=== PATIENT | female | born 1995 | race Caucasian/White ===

== ENCOUNTER 2016-08-24 12:42 | Emergency (ER) | payer BC ==
[2016-08-24] MEDS ORDERED: KETOROLAC 30 MG/1 ML SDV IVP ONE (13:24)
[2016-08-24] MEDS ORDERED: DEXAMETHASONE 10 MG/ML VIAL IVP ONE (13:24)
[2016-08-24] MEDS ORDERED: NS 1,000 ML IV ONE ×2 (13:24)
--- NOTE | 2016-08-24 13:27 | EDPHY ---
H & P Time Seen by Provider: 08/24/16 13:17 HPI/ROS: CHIEF COMPLAINT: Sore throat HISTORY OF PRESENT ILLNESS: 21-year-old woman started getting sick this past Sunday with fever nausea and full body myalgias. She felt better after 2 days but then developed a sore throat. Yesterday she went to work with a significant sore throat and was started on penicillin after rapid strep test was negative and the culture is pending. Today she shows up with worsening sore throat saying it is moderate to severe and it is difficult for her to swallow and is worse with trying to eat or drink. Not associated with fever or chills or shortness of breath. Not associated with ear symptoms. REVIEW OF SYSTEMS: Eye: no change in vision ENT: HPI, no ear symptoms Cardiac: no chest pain or syncope Pulmonary: no cough or SOB Abdomen: no vomiting, diarrhea, abdominal pain Musculoskeletal: No difficulty with range of motion of the neck Skin: no rash Neuro: no headache Constitutional: HPI : no urinary symptoms A comprehensive 10 point review of systems is otherwise negative aside from elements mentioned in the history of present illness. PAST MEDICAL HISTORY: Attention deficit hyperactivity disorder, last period 2 weeks ago, denies . Social history: Nonsmoker, no drugs General Appearance: Alert and conversant, cooperative. Eyes: No scleral icterus. ENT, Mouth: Pharynx shows erythema but no exudate or tonsillar swelling. No trismus. No stridor. No gum swelling. Normal tympanic membranes. Respiratory: Normal respiratory effort, breath sounds equal, lungs are clear to auscultation. Cardiovascular: Regular rate and rhythm. Gastrointestinal: Abdomen is soft and non tender. Neurological: Alert and oriented x3. Normally conversant. Face symmetric, normal movement and sensation in all extremities. Skin: Warm and dry, no rashes. Musculoskeletal: Full range of motion of the neck, no meningeal signs. No palpable cervical lymphadenopathy. Psychiatric: Not agitated. Emergency Department course/MDM: Likely viral pharyngitis especially with negative strep test yesterday. Plan for normal saline 2 L IV with 10 mg IV dexamethasone and 30 mg IV Toradol. Monospot test. 1425: [place] test is negative, patient re-examined at this time. Patient feels better and says that her pain is now down from a 10/10 to almost nonexistent. Smoking Status: Never smoked Constitutional: Initial Vital Signs Temperature (C) 36.8 C 08/24/16 12:55 Heart Rate 100 08/24/16 12:55 Respiratory Rate 16 08/24/16 12:55 Blood Pressure 102/55 L 08/24/16 12:55 O2 Sat (%) 97 08/24/16 12:55 O2 Delivery Mode Room Air Allergies/Adverse Reactions: No Known Allergies Allergy (Unverified 03/02/16 09:11) Home Medications: Medication Instructions Recorded Penicillin G Benzathine 08/24/16 Medical Decision Making Differential Diagnosis: Differential for sore throat considered including but not limited to strep throat, mononucleosis, epiglottitis, retropharyngeal abscess, tonsillitis. - Data Points Laboratory Results: 08/24/16 13:31 Monoscreen NEGATIVE (NEGATIVE) Medications Given: Discontinued Medications Dexamethasone (Decadron Injection) 10 mg IVP EDNOW ONE Stop: 08/24/16 13:25 Last Admin: 08/24/16 13:30 Dose: 10 mg Sodium Chloride (Ns) 1,000 mls @ 0 mls/hr IV ONCE ONE PRN Reason: Wide Open Stop: 08/24/16 13:25 Last Admin: 08/24/16 13:48 Dose: 1,000 mls Sodium Chloride (Ns) 1,000 mls @ 0 mls/hr IV ONCE ONE PRN Reason: Wide Open Stop: 08/24/16 13:25 Last Admin: 08/24/16 13:30 Dose: 1,000 mls Ketorolac Tromethamine (Toradol) 30 mg IVP EDNOW ONE Stop: 08/24/16 13:25 Last Admin: 08/24/16 13:30 Dose: 30 mg Departure - Departure Disposition: Home, Routine, Self-Care Clinical Impression: Pharyngitis Qualifiers: Pharyngitis/tonsillitis etiology: unspecified etiology Qualified Code(s): J02.9 - Acute pharyngitis, unspecified Condition: Good Instructions: Pharyngitis (ED) Additional Instructions: keep taking medications as prescribed. oral ibuprofen 600mg by mouth every 6-8 hours for the next 3 days. negative mono test in the ED. Referrals: Desmond Hobbs MD [Medical Doctor] - 1 day, if not improved (if not better evaluation at ENT office tomorrow; tell them you are a referral from the ED)
[2016-08-24 14:46] VITALS: BP 98/60; PULSE 83; RESP 14; TEMP 98.6; O2SAT 100
== END 2016-08-24 14:46 | disposition home or self-care (01) ==
DX: J02.9 Acute pharyngitis, unspecified (principal)
CPT/HCPCS: 96374; J1885

== ENCOUNTER 2018-06-11 18:00 | Emergency (ER) | payer BC ==
--- NOTE | 2018-06-11 18:35 | EDPHY ---
H & P Stated Complaint: finals/hasn't slept for 2 days/hallucinations/visual issues - Personal History LMP (Females 10-55): 15-21 Days Ago Current Tetanus Diphtheria and Acellular Pertussis (TDAP): Yes - Medical/Surgical History Hx Asthma: No Hx Chronic Respiratory Disease: No Hx Diabetes: No Hx Cardiac Disease: No Hx Renal Disease: No Hx Cirrhosis: No Hx Alcoholism: No Hx HIV/AIDS: No Hx Splenectomy or Spleen Trauma: No Other PMH: ADHD - Social History Smoking Status: Never smoked Time Seen by Provider: 06/11/18 18:20 HPI/ROS: CHIEF COMPLAINT: Multiple complaints see HPI HISTORY OF PRESENT ILLNESS: 22-year-old female history of anxiety, has previously been to emergency department for acute anxiety attack, presents to the ER via [employer] stating that she last slept 2 days ago, has been ingesting large quantities of stimulants in order to stay awake and study, today during her final examination she felt as if she was hallucinating, had difficulty concentrating, feeling tearful. This is currently final examination week. PRIMARY CARE PROVIDER: REVIEW OF SYSTEMS: 10 systems reviewed and negative with the exception of the elements mentioned in the history of present illness PAST MEDICAL & SURGICAL HISTORY: Prior history of acute anxiety attack SOCIAL HISTORY: Denies illicit drug use. [facility] Student PHYSICAL EXAM (Prior to examination, patient consented to physical exam, hands were washed and my usual and customary physical exam procedures followed) 1) GENERAL: Well-developed, well-nourished, alert and oriented. Appears anxious and tearful. 2) HEAD: Normocephalic, atraumatic 3) HEENT: Pupils equal, round, reactive to light bilaterally. Sclera anicteric. Nasopharynx, oropharynx, clear, no lesions. Moist Mucous membranes. Ears bilaterally with normal tympanic membranes. 4) NECK: Full range of motion, no meningeal signs. 5) LUNGS: Clear auscultation bilaterally, no wheezes, no rhonchi, no retractions. 6) HEART: Regular rate and rhythm, no murmur, no heave, no gallop. 7) ABDOMEN: No guarding, no rebound, no focal tenderness, negative McBurney's, negative Felton's, negative Rovsing's, negative peritoneal sign, 8) MUSCULOSKELETAL: Moving all extremities, no focal areas of tenderness, no obvious trauma. No peripheral edema or discoloration. 9) BACK: No CVA tenderness, no midline vertebral tenderness, no fluctuance, no step-off, no obvious trauma, no visual or palpable abnormality. 10) SKIN: No rash, no petechiae. 11) Psychiatric: Patient is oriented X 3, there is no agitation. She is tearful 12) NEURO: Awake, alert, and oriented to person, place and time. Answers questions appropriately. There were no obvious focal neurologic abnormalities. No cerebellar dysfunction. Cranial nerves 2 through to 12 intact. Normal steady gait. Upper and lower extremities bilaterally with strength 5 / 5, reflexes 2+. DIFFERENTIAL DIAGNOSIS: In no particular order, including but not limited to subarachnoid hemorrhage, migraine headache, sleep deprivation, tension headache and infectious causes such as meningitis, pharyngitis and sinusitis. The patient understands that this diagnosis is provisional and can never be 100% accurate. Usual and customary warnings were given concerning the clinical impression and all the patient's questions were answered. The patient was instructed to return to the emergency department should her symptoms worsen or return, or develop any new symptoms, otherwise to followup as directed in discharge instructions. This is a partial list of diagnoses considered. These considerations are based on history, physical exam, past history and reassessment. (Carlos Mauricio) Constitutional: Initial Vital Signs Temperature (C) 36.4 C 06/11/18 18:06 Heart Rate 100 06/11/18 18:06 Respiratory Rate 20 06/11/18 18:06 Blood Pressure 128/87 H 06/11/18 18:06 O2 Sat (%) 100 06/11/18 18:06 O2 Delivery Mode Room Air Allergies/Adverse Reactions: No Known Allergies Allergy (Verified 06/11/18 18:06) Home Medications: Medication Instructions Recorded Adderall 10 MG (*) 06/11/18 Medical Decision Making ED Course/Re-evaluation: 6:35 p.m.: Patient notes no sleep in 48 hr and ingestion a large quantities of stimulants noticed a weight study for final examinations. I think the patient would benefit from IV fluids and benzodiazepine however she has been informed that this will make her sleepy and she notes that she still has 3 finals examinations she needs to study for. She declines benzodiazepine at this time 8:06 p.m.: Patient re-evaluated. She has been allowed to rest for period of time in the ER is feeling significant improvement. She has not been given benzodiazepine. She would like to go home and sleep. I encouraged this. I think her symptoms are more than likely to acute sleep deprivation. At this time I do not think that further diagnostic studies or imaging are indicated. The patient was also seen and examined by secondary supervising physician Dr. Esdras Jacome in the ER. (Carlos Mauricio) Other Provider: PHYSICIAN DOCUMENTATION: The patient was evaluated and managed by the Physician Public Relations Representative and myself. I have reviewed the chart and agree with the findings and plan of care as documented. In addition, I examined the patient myself at 1845. History confirmed as no sleep for the last 2 days, drinking caffeine. Physical findings as follows: Patient is alert and has clear sensorium on my examination. Not tremulous. Symptoms most likely due to caffeine, sleep deprivation. I am the secondary supervising physician. (Esdras Jacome) - Data Points Laboratory Results: Laboratory Results 06/11/18 18:44 06/11/18 18:44 06/11/18 06/11/1818 18:44 18:44 18:44 WBC 6.58 10^3/uL 10^3/uL (3.80-9.50) RBC 4.54 10^6/uL 10^6/uL (4.18-5.33) Hgb 14.4 g/dL g/dL (12.6-16.3) Hct 41.2 % % (38.0-47.0) MCV 90.7 fL fL (81.5-99.8) MCH 31.7 pg pg (27.9-34.1) MCHC 35.0 g/dL g/dL (32.4-36.7) RDW 13.2 % % (11.5-15.2) Plt Count 278 10^3/uL 10^3/uL (150-400) MPV 11.5 fL fL (8.7-11.7) Neut % (Auto) 60.3 % % (39.3-74.2) Lymph % (Auto) 27.2 % % (15.0-45.0) [place] % (Auto) 9.3 % % (4.5-13.0) Eos % (Auto) 2.1 % % (0.6-7.6) Baso % (Auto) 1.1 % % (0.3-1.7) Nucleat RBC Rel Count 0.0 % % (0.0-0.2) Absolute Neuts (auto) 3.97 10^3/uL 10^3/uL (1.70-6.50) Absolute Lymphs (auto) 1.79 10^3/uL 10^3/uL (1.00-3.00) Absolute Monos (auto) 0.61 10^3/uL 10^3/uL (0.30-0.80) Absolute Eos (auto) 0.14 10^3/uL 10^3/uL (0.03-0.40) Absolute Basos (auto) 0.07 10^3/uL 10^3/uL (0.02-0.10) Absolute Nucleated RBC 0.00 10^3/uL 10^3/uL (0-0.01) Immature Gran % 0.0 % % (0.0-1.1) Immature Gran # 0.00 10^3/uL 10^3/uL (0.00-0.10) Sodium 139 mEq/L mEq/L (135-145) Potassium 3.6 mEq/L mEq/L (3.5-5.2) Chloride 108 mEq/L mEq/L (97-110) Carbon Dioxide 20 mEq/l L mEq/l (22-31) Anion Gap 11 mEq/L mEq/L (6-14) BUN 8 mg/dL mg/dL (7-23) Creatinine 0.8 mg/dL mg/dL (0.6-1.0) Estimated GFR > 60 Glucose 102 mg/dL H mg/dL (70-100) Calcium 9.8 mg/dL mg/dL (8.5-10.4) Beta HCG, Qual NEGATIVE Departure - Departure Disposition: Home, Routine, Self-Care Clinical Impression: Sleep deprivation Condition: Good Instructions: Caffeine Use (ED) Additional Instructions: Please go home and sleep. Return to the ER if you develop new or worsening symptoms. Please moderate your stimulant ingestion. Referrals: [facility] [Clinic] - 2-3 days, if not improved Stand Alone Forms: School Excuse
[2018-06-11 18:56] LABS: PLATELET COUNT 278 10^3/uL (150-400)
[2018-06-11 20:31] VITALS: BP 128/78
== END 2018-06-11 20:38 | disposition home or self-care (01) ==
DX: Z72.820 Sleep deprivation (principal); R44.1 Visual hallucinations; F41.9 Anxiety disorder, unspecified